=== PATIENT | female | born 1990 | race Hispanic/Latino ===

== ENCOUNTER 2023-08-03 16:40 | Emergency (ER) | payer SELFPAY ==
[2023-08-03 17:52] LABS: #Eosinphils 0.1 10x3/uL (0.0-0.5); #Monocytes 0.5 10x3/uL (0.0-1.1); #Neutrophils 6.5 10x3/uL (1.5-8.4); %Basophils 0.3 % (0.0-2.0); %Eosinophils 1.3 % (0.0-6.0); %Lymphocytes 22.6 % (18.0-47.0); %Monocytes 5.4 % (0.0-10.0); %Neutrophils 70.1 % (40.0-75.0); Hematocrit 35.4 % (34.9-44.5); Hemoglobin 11.7 g/dL (12.0-15.5); Mean Corpuscular HGB CONC 33.1 g/dL (32.0-36.0); Mean Corpuscular Hemoglobin 30.3 pg (27.0-33.0); Mean Corpuscular Volume 91.7 fl (81.6-98.3); Mean Platelet Volume 10.3 fl (7.4-10.4); Platelet Count 243 10x3/uL (150-450); RBC Distribution Width 11.9 % (11.5-14.5); Red Blood Cell (RBC) Count 3.86 10x6/uL (3.90-5.03); White Blood Cell (WBC) Count 9.3 10x3/uL (3.5-10.5)
[2023-08-03 17:59] LABS: ALT (SGPT) 14 U/L (8-55); AST (SGOT) 17 U/L (5-34); Albumin 4.5 g/dL (3.5-5.0); Alkaline Phosphatase 45 U/L (40-110); Anion Gap 13 mmol/L (10-20); BUN (Urea Nitrogen) 9 mg/dL (7.0-18.7); Bilirubin, Total 0.5 mg/dL (0.2-1.2); Calc. Creatinine Clearance 0 mL/min (70-130); Calcium 9.6 mg/dL (7.8-10.44); Carbon Dioxide 22 mmol/L (22-29); Chloride 106 mmol/L (98-107); Estimated GFR 109; Glucose 99 mg/dL (70-105); Lipase 26 U/L (8-78); Potassium 3.9 mmol/L (3.5-5.1); Protein, Total 7.5 g/dL (6.0-8.3); Sodium 137 mmol/L (136-145)
[2023-08-03 19:24] LABS: Bilirubin Neg (Negative); Blood, Urine 250 (Negative); Clarity Clear (Clear); Glucose, Urine (Dipstick) Normal (Negative); Ketone, Urine Negative (Negative); Leukocyte 100 (Negative); Nitrite Negative (Negative); Protein, Urine (Dipstick) Negative (Neg-Trace); Urobilinogen Normal mg/dL (Less than 2); pH, Urine 6.5 (5.0-9.0)
[2023-08-03 19:55] LABS: Bacteria/HPF Rare-Few HPF (None Seen); CAUTI Indications for Culture Pregnancy; Squamous Epithelial 0-3 HPF (0-3); WBC/HPF 0-3 HPF (0-3)
[2023-08-03 19:56] LABS: Trichomonas/HPF 1+ HPF (None Seen); Urine Culture Reflex Yes Yes
== END 2023-08-03 20:48 | disposition home or self-care (01) ==
LOC: EDBD 16:40 → CSHERS 16:40
DX: O20.0 Threatened abortion (principal); O99.331 Smoking (tobacco) complicating pregnancy, first trimester; F17.290 Nicotine dependence, other tobacco product, uncomplicated; Z3A.01 Less than 8 weeks gestation of pregnancy
CPT/HCPCS: 36415; 76856; 80053; 81001; 83690; 84702; 85025; 86900; 86901; 87086

== ENCOUNTER 2023-08-06 17:07 | Emergency (ER) | payer SELFPAY | END 2023-08-06 18:45 | disposition home or self-care (01) | LOC: CSHERS 17:07 | DX: Z34.91 Encounter for supervision of normal pregnancy, unspecified, first trimester (principal); F17.290 Nicotine dependence, other tobacco product, uncomplicated; Z3A.01 Less than 8 weeks gestation of pregnancy | CPT/HCPCS: 36415; 84702; 99282 ==

== ENCOUNTER 2023-08-29 15:34 | Outpatient (CLI) | payer MEDICAID | END 2023-08-29 15:35 | disposition home or self-care (01) | LOC: CSHULT 15:34 | DX: O00.90 Unspecified ectopic pregnancy without intrauterine pregnancy (principal) | CPT/HCPCS: 76856 ==

== ENCOUNTER 2023-11-26 09:52 | Outpatient (CLI) | payer OTHER ==
[2023-11-26] MEDS ORDERED: Iopamidol 300 61% 100 ML VIAL FS ONE (14:32)
== END 2023-11-26 09:53 | disposition home or self-care (01) ==
LOC: CSHRAD 09:52
PROVIDERS: ATTEND Family Medicine
DX: O00.101 Right tubal pregnancy without intrauterine pregnancy (principal); N83.9 Noninflammatory disorder of ovary, fallopian tube and broad ligament, unspecified; N85.00 Endometrial hyperplasia, unspecified
CPT/HCPCS: 58340; 74740; Q9967